=== PATIENT | female | born 1970 | race American Indian/Alaskan Native ===

== ENCOUNTER 2017-07-15 12:37 | Emergency (ER) | payer MEDICAID ==
[2017-07-15] MEDS ORDERED: Acetaminophen/HYDROcodone 325-10 MG Tab PO ONE (13:10)
--- NOTE | 2017-07-15 13:15 | EDM.PDOC ---
ED HPI GENERAL MEDICAL PROBLEM - General Chief Complaint: Lower Extremity Injury/Pain Stated Complaint: POST SURGICAL PAIN IN LEFT FOOT Time Seen by Provider: 07/15/17 13:01 Source of Information: Reports: Patient History Limitations: Reports: No Limitations - History of Present Illness INITIAL COMMENTS - FREE TEXT/NARRATIVE: Patient is a 46-year-old female presents ED complaining of pain to the left foot status post amputation of all 5 toes approximately 2 weeks ago. Patient has been taking narcotic pain medications up until recently. Patient ran out of these medications unable to get in with her primary care provider at [facility]. Thus she was instructed to come to ED for pain management. Sutures recently moved this past week after follow-up visit with Dr. García. Left Feet Pain Score (Numeric/FACES): 10 - Related Data Allergies Allergy/AdvReac Type Severity Reaction Status Date / Time No Known Allergies Allergy Verified 03/07/14 14:57 Home Meds: Home Meds Aspirin [Halfprin] 81 mg PO DAILY 08/21/13 [History] Ondansetron [Zofran ODT] 4 mg PO Q6H PRN #10 tab.dis 08/21/13 [Rx] Ferrous Sulfate [Iron] 325 mg PO DAILY 07/15/17 [History] Hydrocodone/Acetaminophen [[place] 10-325 Tablet] 1 each PO 6XDAY PRN #5 tablet [Rx] Insulin Aspart [Novolog Flexpen] 0 units INJECT ASDIRECTED 07/15/17 [History] Insulin Detemir [Levemir] 10 units INJECT BEDTIME 07/15/17 [History] Past Medical History Musculoskeletal History: Reports: Other (See Below) Other Musculoskeletal History: left foot with all toes amuptation Psychiatric History: Reports: Anxiety, Depression Endocrine/Metabolic History: Reports: Diabetes, Type II Hematologic History: Reports: Anemia Oncologic (Cancer) History: Reports: Lung, Other (See Below) Other Oncologic History: partial right lobectomy - Past Surgical History GI Surgical History: Reports: Cholecystectomy Female Surgical History: Reports: Hysterectomy Social & Family History - Tobacco Use Smoking Status *Q: Former Smoker Years of Tobacco use: 20 Used Tobacco, but Quit: Yes Month Tobacco Last Used: 1 yr Second Hand Smoke Exposure: Yes - Caffeine Use Caffeine Use: Reports: Coffee, Tea - Alcohol Use Days Per Week of Alcohol Use: 0 - Recreational Drug Use Recreational Drug Use: No Review of Systems - Review of Systems Review Of Systems: ROS reveals no pertinent complaints other than HPI. ED EXAM, GENERAL - Physical Exam Exam: See Below Exam Limited By: No Limitations General Appearance: Alert, WD/WN, No Apparent Distress Ears: Hearing Grossly Normal Nose: Normal Inspection Throat/Mouth: Normal Voice, No Airway Compromise Neck: Normal Inspection Respiratory/Chest: No Respiratory Distress, No Accessory Muscle Use Cardiovascular: Normal Peripheral Pulses, Regular Rate, Rhythm Extremities: Other (Left foot: All toes on the left foot are agitated with scab present over the suture line. No redness, increased warmth, no swelling, no drainage noted. Pain with palpation. No other concerning findings for infection. ) Neurological: Alert, Oriented, Normal Cognition, No Motor/Sensory Deficits Psychiatric: Normal Affect, Normal Mood Skin Exam: Warm, Dry, Intact, Normal Color Course - Vital Signs Last Recorded V/S: Last Vital Signs Temp 97.7 F 07/15/17 13:00 Pulse 102 H 07/15/17 13:00 Resp 20 07/15/17 13:00 BP 152/109 H 07/15/17 13:00 Pulse Ox 95 07/15/17 13:00 - Orders/Labs/Meds Meds: Medications Discontinued Medications Generic Name Dose Route Start Last Admin Trade Name Freq PRN Reason Stop Dose Admin Hydrocodone Bitart/Acetaminophen 1 tab 07/15/17 13:10 07/15/17 13:28 [place] 325-10 Mg PO 07/15/17 13:11 1 tab ONETIME ONE Administration - Re-Assessments/Exams Free Text/Narrative Re-Assessment/Exam: On examination patient has no signs of infection present. Patient has been ambulating on the affected foot against surgeons instructions. She has ran out of all her pain medications unable to get in with her PCP due to weather cancellations. Ordered 10-325 1 tab by mouth. We'll discharge patient home with a prescription for 5 tabs with instructions to see PCP tomorrow for further pain management. Patient was advised that the ED does not treat chronic pain. Departure - Departure Time of Disposition: 13:13 Disposition: Home, Self-Care 01 Condition: Good Clinical Impression: Status post left foot surgery - Discharge Information Prescriptions: Hydrocodone/Acetaminophen [[place] 10-325 Tablet] 1 each PO 6XDAY PRN #5 tablet PRN Reason: Pain (Severe 7-10) Instructions: Pain Medicine Instructions, [id number] Referrals: PCP,Not In Area [Primary Care Provider] - Forms: ED Department Discharge Additional Instructions: No driving since receiving a sedative medication while in the ED. No driving while taking the [place]. Continue to follow instructions by surgeon including nonweightbearing on the affected foot. Elevate when able to reduce any swelling and pain. Call and make an appointment to be reevaluated by orthopedic surgeon. See PCP for further pain management. ED does not treat chronic pain.
== END 2017-07-15 13:30 | disposition home or self-care (01) ==
LOC: JD.ED 12:37
DX: M79.672 Pain in left foot (principal); Z98.890 Other specified postprocedural states; F32.9 Major depressive disorder, single episode, unspecified; E11.9 Type 2 diabetes mellitus without complications; Z87.891 Personal history of nicotine dependence; Z79.4 Long term (current) use of insulin; Z79.82 Long term (current) use of aspirin
CPT/HCPCS: 99283; A9270